=== PATIENT | male | born 1960 | race Caucasian/White ===

== ENCOUNTER 2016-07-19 16:37 | Emergency (ER) | payer OTHER ==
[2016-07-19 17:00] VITALS: RESP 16; TEMP 97.7
[2016-07-19] MEDS ORDERED: predniSONE 20 MG TAB PO ONE (18:03)
[2016-07-19] MEDS ORDERED: AZITHROMYCIN 250 MG TAB PO ONE (18:23)
[2016-07-19] MEDS ORDERED: LISINOPRIL 20 MG TAB PO ONE (18:28)
--- NOTE | 2016-07-19 18:29 | UCPHY ---
H & P Time Seen by Provider: 07/19/16 17:48 Patient Type: New HPI/ROS: This patient has a history of cough for 3 weeks now productive of green sputum. Also has history of mild asthma has been using his albuterol inhaler with some improvement but does feel some wheezing. He has also been compliant with his Advair. He notes no other exacerbating factors. No other associated symptoms. ROS: No significant fatigue. No high fevers or chills. HEENT: No significant nasal congestion. No facial pain. No ear pain. No throat pain. Neuro: No headache. Pulmonary: No pleuritic pain or respiratory distress. No hemoptysis. Cardiovascular: No chest pain. No lower extremity swelling. No heart palpitations or lightheadedness. GI: No nausea or vomiting. : No complaints integumentary: No skin rash. Endocrine: No complaints. 10 point ROS is otherwise negative Past Medical/Surgical History: Mild asthma History of borderline hypertension Smoking Status: Unknown if ever smoked Physical Exam: General Appearance: Alert, no distress. Eyes: Pupils equal and round no pallor or injection. ENT, Mouth: Mucous membranes moist. Respiratory: Faint expiratory wheeze more than in the upper lung [place]. No rales or rhonchi. Cardiovascular: Regular rate and rhythm. No murmur gallop rub. No peripheral edema or leg tenderness. Gastrointestinal: Abdomen is soft and nontender, no masses, bowel sounds normal. Neurological: Alert orient x3 with no sensory motor deficits Skin: Warm and dry, no rashes. Musculoskeletal: Neck is supple nontender. Extremities are symmetrical, full range of motion. Psychiatric: Mood and affect are normal DIFFERENTIAL DIAGNOSIS: After history and physical exam differential diagnosis was considered for Constitutional: Initial Vital Signs Temperature (C) 36.5 C 07/19/16 16:45 Heart Rate 77 07/19/16 16:45 Respiratory Rate 16 07/19/16 16:45 Blood Pressure 176/117 H 07/19/16 16:45 O2 Sat (%) 96 07/19/16 16:45 O2 Delivery Mode Room Air Allergies/Adverse Reactions: No Known Allergies Allergy (Verified 07/19/16 16:55) Home Medications: Medication Instructions Recorded Advair 250/50 (*) 07/19/16 Albuterol Hfa Anes Only 07/19/16 Azithromycin [Zithromax] 250 mg PO DAILY #6 tab 07/19/16 Lisinopril 10 mg PO DAILY #50 tablet 07/19/16 predniSONE 60 mg PO DAILY #18 tab 07/19/16 MDM/Departure - [facility] Medications Given: Discontinued Medications Azithromycin (Zithromax) 500 mg PO EDNOW ONE PRN Reason: Protocol Stop: 07/19/16 18:24 Last Admin: 07/19/16 18:30 Dose: 500 mg Lisinopril (Zestril) 10 mg PO EDNOW ONE Stop: 07/19/16 18:29 Last Admin: 07/19/16 18:30 Dose: 10 mg Prednisone (Prednisone) 60 mg PO EDNOW ONE Stop: 07/19/16 18:04 Last Admin: 07/19/16 18:15 Dose: 60 mg ED Course/Re-evaluation: The patient declined a neb here. He did except a dose of prednisone. Discussion: Findings consistent with mild wheezing-likely very mild asthma exacerbation attributable to bronchitis. I counseled regarding this. No clinical evidence to suggest lower respiratory infection, respiratory distress or other concerning findings. While he has hypertension here, he does not have evidence of end-organ injury clinically. - Depart Disposition: Home, Routine, Self-Care Clinical Impression: Asthma exacerbation, Acute bronchitis, Hypertension Condition: Good Instructions: Lisinopril (By mouth), Asthma (ED), Hypertension (ED) Additional Instructions: Diagnoses: 1. Asthma exacerbation 2. Bronchitis 3. Hypertension Plan: Lisinopril antihypertensive-10 mg a day for the next 5-7 days if you're still hypertensive and double to 20 mg a day Humidifier Albuterol inhaler with spacer for cough, wheeze or shortness of breath Zithromax antibiotic Prednisone as prescribed Continue your other medications. Follow up with primary care physician for sometime in the next 3-7 days Go to the emergency department for any significant worsening despite treatment plan Prescriptions: Azithromycin [Zithromax] 250 mg PO DAILY #6 tab Lisinopril 10 mg PO DAILY #50 tablet predniSONE 60 mg PO DAILY #18 tab Referrals: NONE *PRIMARY CARE P,. [Primary Care Provider] - As per Instructions Vielka Evangelista MD [Medical Doctor] - As per Instructions Ene Lopez MD [[facility] [place] Primary Care Provider] - As per Instructions - PQRS PQRS Measurement: NA
[2016-07-19 18:46] VITALS: BP 165/118; PULSE 78; O2SAT 95
== END 2016-07-19 18:30 | disposition home or self-care (01) ==
LOC: CED 16:37
DX: J20.9 Acute bronchitis, unspecified (principal); J45.901 Unspecified asthma with (acute) exacerbation; I10 Essential (primary) hypertension
CPT/HCPCS: 99203-PO; G0463-PO

== ENCOUNTER 2017-06-12 18:22 | Emergency (ER) | payer BC, OTHER ==
[2017-06-12 18:39] VITALS: TEMP 99; O2SAT 96
[2017-06-12] MEDS ORDERED: KETAMINE 200 MG/20 ML VIAL IVP ONE (19:14)
--- NOTE | 2017-06-12 19:18 | EDPHY ---
H & P Stated Complaint: BACK PAIN FROM FALL DOWN THE STAIRS Source: Patient Exam Limitations: No limitations - Personal History Current Tetanus/Diphtheria Vaccine: Yes Current Tetanus Diphtheria and Acellular Pertussis (TDAP): Yes - Medical/Surgical History Hx Asthma: Yes Hx Diabetes: No Hx Cardiac Disease: No Hx Renal Disease: No Hx Cirrhosis: No Hx Alcoholism: No Hx HIV/AIDS: No Hx Splenectomy or Spleen Trauma: No Other PMH: Med hx-as above. Surg- rt shoulder and acl repair x2 - Social History Smoking Status: Unknown if ever smoked Time Seen by Provider: 06/12/17 19:06 HPI/ROS: CHIEF COMPLAINT: Low back pain HISTORY OF PRESENT ILLNESS: Patient is a 57-year-old man who was walking up his stairs yesterday wearing socks holding water bottles when he slipped and fell backwards into a sitting position on the steps. He is complaining of low back pain. No paresthesias or numbness. No weakness. He is ambulatory. No bowel or bladder abnormalities. He denies head or neck injury. He denies other injuries. REVIEW OF SYSTEMS: Constitutional: denies: chills, fever, recent illness, recent injury EENTM: denies: blurred vision, double vision, nose congestion Respiratory: denies: cough, shortness of breath Cardiac: denies: chest pain, irregular heart rate, lightheadedness, palpitations Gastrointestinal/Abdominal: denies: abdominal pain, diarrhea, nausea, vomiting, blood streaked stools Genitourinary: denies: dysuria, frequency, hematuria, pain Musculoskeletal: See HPI Skin: denies: lesions, rash, jaundice, bruising Neurological: denies: headache, numbness, paresthesia, tingling, dizziness, weakness Hematologic/Lymphatic: denies: blood clots, easy bleeding, easy bruising Immunologic/allergic: denies: HIV/AIDS, transplant EXAM: GENERAL: Well-appearing, well-nourished and in no acute distress. HEAD: Atraumatic, normocephalic. EYES: Pupils equal round and reactive to light, extraocular movements intact, sclera anicteric, conjunctiva are normal. ENT: TMs normal, nares patent, oropharynx clear without exudates. Moist mucous membranes. NECK: Normal range of motion, supple without lymphadenopathy or JVD. LUNGS: Breath sounds clear to auscultation bilaterally and equal. No wheezes rales or rhonchi. HEART: Regular rate and rhythm without murmurs, rubs or gallops. ABDOMEN: Soft, nontender, normoactive bowel sounds. No guarding, no rebound. No masses appreciated. BACK: Low back pain, No CVA tenderness, no spinal tenderness, step-offs or deformities EXTREMITIES: Normal range of motion, no pitting or edema. No clubbing or cyanosis. NEUROLOGICAL: Cranial nerves II through XII grossly intact. Normal speech, normal gait. 5/5 strength, normal movement in all extremities, normal sensation PSYCH: Normal mood, normal affect. SKIN: Warm, dry, normal turgor, no visible rashes or lesions. (Jose Alfredo Jerome) Constitutional: Initial Vital Signs Temperature (C) 37.2 C 06/12/17 18:35 Heart Rate 90 06/12/17 18:35 Respiratory Rate 15 06/12/17 18:35 Blood Pressure 149/86 H 06/12/17 18:35 O2 Sat (%) 96 06/12/17 18:35 O2 Delivery Mode Room Air Allergies/Adverse Reactions: No Known Allergies Allergy (Verified 07/19/16 16:55) Home Medications: Medication Instructions Recorded Advair 250/50 (*) 07/19/16 Albuterol Hfa Anes Only 07/19/16 Azithromycin [Zithromax] 250 mg PO DAILY #6 tab 07/19/16 Lisinopril 10 mg PO DAILY #50 tablet 07/19/16 predniSONE 60 mg PO DAILY #18 tab 07/19/16 Medical Decision Making ED Course/Re-evaluation: 8:50 p.m. the patient had some relief with the Valium. We will give him IM Toradol. We are still awaiting CT scan. 9:00 p.m. Care transferred to Dr. Hernandez. (JoseA lfredo Jerome) Other Provider: Patient signed out to me by Dr. Jerome at 9:[address] Pending results of CT scan of the thoracic spine. The plan was to discharge patient home if this study was negative. At approximately 10:00 p.m., I received a call from Dr. Caden Hassan , the radiologist, indicating that the results of the study were negative for acute trauma. I explained this to the patient and he was very relieved. He feels comfortable going home and taking ibuprofen. He declined other pain medication. (Souleymane Hernandez) - Data Points Medications Given: Discontinued Medications Diazepam (Valium) 5 mg PO EDNOW ONE Stop: 06/12/17 19:24 Last Admin: 06/12/17 19:25 Dose: 5 mg Ketorolac Tromethamine (Toradol) 60 mg IM EDNOW ONE Stop: 06/12/17 20:50 Last Admin: 06/12/17 21:05 Dose: 60 mg Departure - Departure Disposition: Home, Routine, Self-Care Clinical Impression: Back strain Qualifiers: Encounter type: initial encounter Qualified Code(s): S39.012A - Strain of muscle, fascia and tendon of lower back, initial encounter Condition: Good Instructions: Back Pain (ED) Additional Instructions: Return to the emergency department for worsening pain, swelling, numbness, weakness or other concerns. Ibuprofen as directed Referrals: Caden Mckeon [Primary Care Provider] - As per Instructions
[2017-06-12] MEDS ORDERED: DIAZEPAM 5 MG TAB PO ONE (19:23)
[2017-06-12] MEDS ORDERED: DIAZEPAM 5 MG TAB ONE (19:24)
[2017-06-12] MEDS ORDERED: KETOROLAC 30 MG/1 ML SDV IM ONE (20:49)
[2017-06-12 22:22] VITALS: BP 138/80; PULSE 84; RESP 16
== END 2017-06-12 22:23 | disposition home or self-care (01) ==
DX: S39.012A Strain of muscle, fascia and tendon of lower back, initial encounter (principal); J45.909 Unspecified asthma, uncomplicated; W10.9XXA Fall (on) (from) unspecified stairs and steps, initial encounter; Y93.01 Activity, walking, marching and hiking
CPT/HCPCS: J1885